=== PATIENT | female | born 1975 | race Caucasian/White ===

== ENCOUNTER 2016-11-22 20:14 | Emergency (ER) | payer BC ==
[2016-11-22 21:04] VITALS: BP 106/75; PULSE 80; RESP 18; TEMP 98
[2016-11-22] MEDS ORDERED: CYCLOBENZAPRINE 10MG STARTER 3 TAB BTL PO STA (21:23)
--- NOTE | 2016-11-22 21:23 | ED ---
Head Injury HPI - General Chief complaint: Head Injury Stated complaint: Fall Time Seen by Provider: 11/22/16 21:07 Source: patient, RN notes reviewed, old records reviewed Mode of arrival: ambulatory Limitations: no limitations - History of Present Illness Initial comments: Patient is a 41 year old female presenting 2 days after a head injury while putting her sukhdev tree in the attic. She states that the tree fell down on her and she fell and strained her right shoulder, landed on her tailbone and has some minor abrasions over her face. She states that she hit the back of her head on the floor, no loss of consciousness, vomiting, or neck pain. She states that she went to an urgent care clinic, and they stated that they would not write her a work note until she was evaluated by an emergency room clinician. She denies any fatigue, confusion, altered mental status. Patient reports she feels fine, and essentially needs a work note for the day. - Related Data Previous Rx's Medication Instructions Recorded Cyclobenzaprine [Flexeril] 10 mg PO TID #20 tab 11/22/16 Allergies/Adverse reactions: Allergies Allergy/AdvReac Type Severity Reaction Status Date / Time aspirin Allergy Unknown Verified 11/22/16 21:04 latex Allergy Unknown Verified 11/22/16 21:04 Review of Systems ROS Statement: Those systems with pertinent positive or pertinent negative responses have been documented in the HPI. ROS Other: All systems not noted in ROS Statement are negative. Past Medical History Past Medical History: Thyroid Disorder History of Any Multi-Drug Resistant Organisms: None Reported Past Surgical History: Bariatric Surgery, Hysterectomy Additional Past Surgical History / Comment(s): Thyroidectomy Past Psychological History: No Psychological Hx Reported Smoking Status: Never smoker Past Alcohol Use History: None Reported Past Drug Use History: None Reported General Exam - General Exam Comments Initial Comments: Well appearing 41 year old female, no acute distress. Limitations: no limitations General appearance: alert, in no apparent distress Head exam: Present: atraumatic, normocephalic, normal inspection Eye exam: Present: normal appearance, PERRL, EOMI. Absent: scleral icterus, conjunctival injection, periorbital swelling ENT exam: Present: normal exam, mucous membranes moist Neck exam: Present: normal inspection. Absent: tenderness, meningismus, lymphadenopathy Respiratory exam: Present: normal lung sounds bilaterally. Absent: respiratory distress, wheezes, rales, rhonchi, stridor Cardiovascular Exam: Present: regular rate, normal rhythm, normal heart sounds. Absent: systolic murmur, diastolic murmur, rubs, gallop, clicks GI/Abdominal exam: Present: soft, normal bowel sounds. Absent: distended, tenderness, guarding, rebound, rigid Extremities exam: Present: normal inspection, full ROM, normal capillary refill. Absent: tenderness, pedal edema, joint swelling, calf tenderness Back exam: Present: normal inspection Neurological exam: Present: alert, oriented X3, CN II-XII intact Expanded Patient oriented to: Present: person, place, time Speech: Present: fluid speech Cranial nerves: EOM's Intact: Normal, Gag Reflex: Normal, Tongue Deviation: Normal, Facial Sensation: Normal Cerebellar function: Finger to Nose: Normal Upper motor neuron: Pronator Drift: Normal Sensory exam: Upper Extremity Light Touch: Normal, Lower Extremity Light Touch: Normal Motor strength exam: RUE: 5, LUE: 5, RLE: 5, LLE: 5 Eye Response: (4) open spontaneously Motor Response: (6) obeys commands Verbal Response: (5) oriented Keri Total: 15 Psychiatric exam: Present: normal affect, normal mood Skin exam: Present: warm, dry, intact, normal color. Absent: rash Course Vital Signs 11/22/16 21:00 Temperature 98 F Pulse Rate 80 Respiratory 18 Rate Blood Pressure 106/75 O2 Sat by Pulse 100 Oximetry Medical Decision Making - Medical Decision Making Patient is a 41 year old female with chief complaint of a head injury 2 days ago. She was seen at urgent care today, and was told she needed to be further evaluated by emergency physician. Patient has no neurological deficits, and is feeling fine. She has no headache. She states that she could not receive a work note from urgent care and was instructed to come to the emergency room if she needed a work note. Patient has no headache, neck pain, and GCS is 15 with no neurological deficits. She reports some pain with flexion and abduction of right shouder, but does have full range of motion. Patient will be prescribed a muscle relaxer medication and given a note for work. Given that the injury is over 48 hours after her fall, extremely unlikely to be any abnormal brain CT such as hemorrhaging. I advised patient on head injury instructions, patient understands treatment plan and will comply. Disposition Clinical Impression: Fall, Minor head injury without loss of consciousness Disposition: HOME SELF-CARE Condition: Good Instructions: Head Injury (ED) Additional Instructions: Patient is to rest, apply warm heat over the extremities and to follow-up with primary care provider if any concerning signs or symptoms occur. Return to emergency department concerned about any further developing symptoms. Prescriptions: Cyclobenzaprine [Flexeril] 10 mg PO TID #20 tab Referrals: Mariana Ramos DO [Primary Care Provider] - 1-2 days Time of Disposition: 21:22
== END 2016-11-22 21:48 | disposition home or self-care (01) ==
LOC: EC 20:14
DX: S09.90XA Unspecified injury of head, initial encounter (principal); Z88.6 Allergy status to analgesic agent; Z91.040 Latex allergy status; W19.XXXA Unspecified fall, initial encounter
CPT/HCPCS: 99283

== ENCOUNTER → 2017-05-17 | Outpatient (CLI) | payer BC ==
[2017-05-17 17:03] LABS: ALT 25 U/L (9-52); AST 18 U/L (14-36); Alkaline Phosphatase 54 U/L (38-126); Anion Gap 10 mmol/L; Blood Urea Nitrogen 18 mg/dL (7-17); Calcium 8.7 mg/dL (8.4-10.2); Carbon Dioxide 26 mmol/L (22-30); Chloride 106 mmol/L (98-107); Glucose 76 mg/dL (74-99); Non-African American GFR(MDRD) >60 (>60 ml/min/1.73 sqM); Potassium 4.1 mmol/L (3.5-5.1); Sodium 142 mmol/L (137-145); Total Bilirubin 0.5 mg/dL (0.2-1.3)
== END | disposition home or self-care (01) ==
LOC: LABWHC1 16:27
PROVIDERS: ATTEND Family Medicine
DX: E55.9 Vitamin D deficiency, unspecified (principal); E83.51 Hypocalcemia
CPT/HCPCS: 36415; 80053; 83970; 84443; 84480

== ENCOUNTER → 2017-05-24 | Outpatient (CLI) | payer BC ==
--- NOTE | 2017-05-25 10:25 | WWHP ---
DATE OF SERVICE: 05/24/17 CHIEF COMPLAINT: The patient is here for her routine gynecological exam and mammogram. HISTORY OF PRESENT ILLNESS: This is a 41-year-old G2, P2, with an LMP of 2007. She states she has noticed a small lump near the clitoris and she first noticed about six months ago. She states it was very small but seems to have gotten bigger and now is slightly greater than pea size. She states it is not painful but can feel irritated especially after shaving this area. The patient is without gynecological complaints. She denies hot flashes. PAST MEDICAL HISTORY: Hypothyroidism. Medications: Levoxyl 125 mcg daily. ALLERGIES: LATEX AND ASPIRIN. PAST SURGICAL HISTORY: Unchanged from 2014 H&P. 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 She has no history of STDs. SOCIAL HISTORY: She denies tobacco, alcohol and drug use. She recently got in 2015 and this is her second marriage. She works for [employer] and travels to [place] frequently. FAMILY HISTORY: Unchanged from 2014 H&P. REVIEW OF SYSTEMS: She has lost about21 pounds over the last year. She is status post lap band surgery in the past. The patient is also experiencing fatigue and feeling very tired all of the time. She also states she often does not feel like getting out of bed and lacks motivation. She denies any suicidal ideation. She denies respiratory, cardiac or gastrointestinal problems. PHYSICAL EXAM: Blood pressure 91/67. Height 4 feet 11 inches. Weight 138 pounds. Temperature 98.4. Pulse 80. This is a well developed, well nourished white female who is alert and oriented times three in no acute distress. HEENT: is within normal limits. Neck is supple without mass or thyromegaly. Chest and lungs clear to auscultation. Heart is regular rate and rhythm. Breasts: Consistent with bilateral implants. There are no palpable masses or tenderness. Axillary exam is negative for adenopathy. Back negative for CVA tenderness. Abdomen there is a palpable lap band port in the upper abdomen which is nontender. There are no other abdominal masses or tenderness noted. Pelvic exam, external genitalia reveals periclitoral cyst approximately 1.5 cm to the clitoris. This cyst measures approximately 9 x 6 mm. This is smooth and mobile. It is nontender and nonerythematous. The rest of the external genitalia is within normal limits. The vagina appears normal. There is no significant atrophy. There is no evidence of prolapse. Bimanual exam is negative for mass or tenderness. Rectal exam negative for mass or tenderness. Negative for occult blood. Extremities nontender. Additional studies: she had some lab work done on 05/17/17 which revealed TSH 6.2 which is elevated and BUN 18 which is slightly elevated. These were tests ordered by her primary care physician office. IMPRESSION: 1. A 41-year-old female who is status post vaginal hysterectomy for benign reasons. 2. Periclitoral epidermal inclusion cyst which has a benign appearance which is bothersome to the patient. 3. Fatigue and lack of motivation which is probably related to her elevated TSH and suggests her hypothyroidism is not well controlled. PLAN: 1. Pap smears have been discontinued. 2. Self breast examination was discussed. 3. Mammogram will be done today. 4. I have recommended that she follow-up with her primary care physician as soon as possible for possible thyroid medication adjustment because of her symptoms and abnormal TSH. 5. She will make an appointment for removal of the periclitoral cyst. We will do this in the office. 6. She will also follow-up with her primary care physician regarding her elevated BUN. 7. If her symptoms of fatigue and lack of motivation are not improved after adjustment of her thyroid medication, we will consider testing including FSH and estradiol. 8. She will return in one year. JEB
--- NOTE | 2017-05-25 11:20 | MM ---
Reason for exam: screening (asymptomatic). Last mammogram was performed 3 years and 7 months ago. History: Family history of breast cancer in grandmother and premenopausal breast cancer in 3 aunts. Implants in both breasts, 2009. Took hormonal contraceptives for 2 years. Physical Findings: A clinical breast exam by your physician is recommended on an annual basis and results should be correlated with mammographic findings. MG Screening Mammo Implant/CAD Bilateral CC, MLO, and ID view(s) were taken. Prior study comparison: October 22, 2013, bilateral digital screening mammo w/CAD. February 25, 2009, bilateral digital screening mammogram. There are scattered fibroglandular densities. No suspicious abnormality. No significant changes when compared with prior studies. ASSESSMENT: Negative, BI-RAD 1 RECOMMENDATION: Routine screening mammogram of both breasts in 1 year.
== END | disposition home or self-care (01) ==
LOC: WWCWWP 10:06
PROVIDERS: ATTEND Obstetrics & Gynecology
DX: Z12.31 Encounter for screening mammogram for malignant neoplasm of breast (principal)

== ENCOUNTER → 2017-06-06 | Day surgery (SDC) | payer BC ==
--- NOTE | 2017-06-06 13:52 | P.PCN ---
Date of Procedure: 06/06/17 Preoperative Diagnosis: Periclitoral epidermal mass Postoperative Diagnosis: Same Procedure(s) Performed: Excision of periclitoral epidermal mass Implants: Anesthesia: local Surgeon: Niko Moreno Estimated Blood Loss (ml): 1 IV fluids (ml): 0 Pathology: other (Epidermal mass) Condition: stable Disposition: same day Indications for Procedure: This was a 41-year-old female who noticed a lump in the clitoral area about six months ago. She states that has gotten larger recently. She states this can be irritating as it is in a very sensitive location Operative Findings: A geovanny-clitoral mass was noted approximately 1.5 cm superior to the clitoris. This is in the midline. This measured approximately 9 x 6 mm. It was smooth and mobile. This was nontender. Description of Procedure: The procedure was discussed with the patient. We discussed possible risks and complications. The area was prepped with Betadine solution. 1% lidocaine was used for local anesthesia and approximately 1.5 mL was used. Following determination of adequate anesthesia, a superficial incision was made over the mass with an 11 blade. The mass was carefully excised intact and sent for pathological examination. A silver nitrate stick was used to obtain hemostasis. Antibiotic ointment was applied and a dressing was also applied. The patient tolerated the procedure well. There were no complications. The patient was instructed to leave the dressing up for 24 hours. She would then keep it clean and dry and use Neosporin's twice daily. She was instructed , she has any problems.
== END ==
LOC: WWCWWP 12:11
PROVIDERS: ATTEND Obstetrics & Gynecology
DX: D28.0 Benign neoplasm of vulva (principal)
CPT/HCPCS: 88305

== ENCOUNTER → 2017-07-10 | Outpatient (CLI) | payer BC ==
[2017-07-10 15:02] VITALS: BP 122/65; PULSE 80; TEMP 97.8; BMI 28.0
--- NOTE | 2017-07-10 16:13 | P.HPBAR ---
Bariatric H&P - History & Physicial H&P Date: 07/10/17 History & Physicial: Visit/CC: lap band follow up Patient initial contact: Initial weight: Initial weight in pounds: Height: 4 ft 11 in Initial BMI: Last weight: Current weight: 62.868 kg Current weight in pounds: 138.60 Current BMI: 28.0 [place] body weight (based on NIH guidelines): 43.091 kg Excess body weight loss: The patient is a 41 year-old F who presents for Bariatric Assessment. The patient presents today for lap band follow up. She is requesting some fluid to be remove her band. She's had some minor dysphagia. Past Medical History Past Medical History: Thyroid Disorder History of Any Multi-Drug Resistant Organisms: None Reported Past Surgical History: Bariatric Surgery, Hysterectomy Additional Past Surgical History / Comment(s): Thyroidectomy Past Psychological History: No Psychological Hx Reported Smoking Status: Never smoker Past Alcohol Use History: None Reported Past Drug Use History: None Reported Surgical - Exam Vital Signs Temp Pulse BP 97.8 F 80 122/65 07/10/17 14:55 07/10/17 14:55 07/10/17 14:55 - General well developed, no distress - Eyes PERRL - Abdomen Abdomen: soft, non tender Bariatric Assessment & Plan Plan: Patient's lap band was adjusted. She had 0.5 mL remove her band. She will follow-up in one month. Bariatric Checklist Checklist: Plan: Checklist: EGD: 1. Hiatal hernia: 2. H. Pylori: HgbA1c: Vitamin D: Smoking: Never smoker Primary care physician referral: Psychiatry clearance: Cardiology clearance: Sleep study: Diet journal: VTE risk score: VTE risk level: Rehab needs at discharge:
== END | disposition home or self-care (01) ==
LOC: BARWHC3 14:21
PROVIDERS: ATTEND Surgery
DX: Z48.815 Encounter for surgical aftercare following surgery on the digestive system (principal); Z98.84 Bariatric surgery status
CPT/HCPCS: 99212

== ENCOUNTER → 2017-10-16 | Outpatient (CLI) | payer BC ==
--- NOTE | 2017-10-16 16:08 | P.HPBAR ---
Bariatric H&P - History & Physicial H&P Date: 10/16/17 History & Physicial: Visit/CC: Patient initial contact: Initial weight: Initial weight in pounds: Height: Initial BMI: Last weight: Current weight: Current weight in pounds: Current BMI: [place] body weight (based on NIH guidelines): Excess body weight loss: The patient is a 42 year-old F who presents for Bariatric Assessment. Patient presents today for LAP-BAND follow-up. She has complaints of hunger. She's gained approximately 23 pounds since her last visit. Past Medical History Past Medical History: Thyroid Disorder History of Any Multi-Drug Resistant Organisms: None Reported Past Surgical History: Bariatric Surgery, Hysterectomy Additional Past Surgical History / Comment(s): Thyroidectomy Past Psychological History: No Psychological Hx Reported Smoking Status: Never smoker Past Alcohol Use History: None Reported Past Drug Use History: None Reported Surgical - Exam - General well developed, no distress - Eyes PERRL - Cardiovascular Rhythm: regular - Abdomen Abdomen: soft, non tender Bariatric Assessment & Plan Plan: A shunt LAP-BAND was adjusted. 0.3 mL was added to her band. She currently 7.1 mL in the band. She was able to drink water without difficulty. Bariatric Checklist Checklist: Plan: Checklist: EGD: 1. Hiatal hernia: 2. H. Pylori: HgbA1c: Vitamin D: Smoking: Never smoker Primary care physician referral: Psychiatry clearance: Cardiology clearance: Sleep study: Diet journal: VTE risk score: VTE risk level: Rehab needs at discharge:
[2017-10-16 16:22] VITALS: RESP 15; BMI 32.5
== END ==
LOC: BARWHC3 13:18
PROVIDERS: ATTEND Surgery
DX: Z48.815 Encounter for surgical aftercare following surgery on the digestive system (principal); Z98.84 Bariatric surgery status; Z90.710 Acquired absence of both cervix and uterus
CPT/HCPCS: 99212

== ENCOUNTER → 2021-05-26 | Outpatient (CLI) | payer BC ==
[2021-05-26 10:50] VITALS: BP 91/60; PULSE 78; RESP 16; TEMP 98.4
--- NOTE | 2021-05-26 12:13 | P.HPOB ---
History of Present Illness H&P Date: 05/26/21 Chief Complaint: The patient is here for her routine gynecologic exam and ma mmogram. This is a 45-year-old with an LMP of 2007. The patient is status post vaginal hysterectomy in 2007 for history of cervical dysplasia. The patient is without gynecologic complaints and denies any significant hot flashes. Review of Systems She has gained about 20 pounds over the past 4 years. This was after losing significant weight following a lap band surgery. She denies respiratory, cardiac, or GI problems. Past Medical History Past Medical History: Cancer, Thyroid Disorder Additional Past Medical History / Comment(s): LAP BAND WITH FLUID (DR DIAZ), THYROID CANCER WITH SURGERY., ANEMIA., FX LEFT ANKLE 11/17/20-STATES SHE HAS AIR CAST. Hypothyroidism. 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 She had a vaginal hysterectomy for high-grade dysplasia and abnormal bleeding. History of Any Multi-Drug Resistant Organisms: MRSA Date of last positivie culture/infection: 2011 MDRO Source:: ORAL Past Surgical History: Bariatric Surgery, Breast Surgery, Hysterectomy Additional Past Surgical History / Comment(s): Thyroidectomy, LAP BAND-FOLLOWS WITH DR DIAZ. Panniculectomy. Bilateral silicone breast implants. Conization of the cervix 2005. Vaginal hysterectomy in 2007. Left ankle surgery 2020. Past Anesthesia/Blood Transfusion Reactions: No Reported Reaction, Family History of Problems w/ Anesthesia Additional Past Anesthesia/Blood Transfusion Reaction / Comment(s): DAUGHTER HAS PONV Past Psychological History: No Psychological Hx Reported Smoking Status: Never smoker Past Alcohol Use History: None Reported Past Drug Use History: None Reported Additional History: She has been since 2015 and this is her second marriage. She works for [employer] and travels frequently. - Past Family History Mother Family Medical History: No Reported History Father Family Medical History: Cancer Additional Family Medical History / Comment(s): KIDNEY CANCER maternal aunts Family Medical History: Cancer Additional Family Medical History / Comment(s): 3 maternal aunts with breast cancer. Paternal Grandfather Family Medical History: Cancer Additional Family Medical History / Comment(s): Colon and pancreatic cancer. paternal aunt Family Medical History: Cancer Additional Family Medical History / Comment(s): Colon cancer. Medications and Allergies Home Medications Medication Instructions Recorded Confirmed Type Levothyroxine 115 mcg PO DAILY 12/16/20 05/26/21 History Allergies Allergy/AdvReac Type Severity Reaction Status Date / Time aspirin Allergy nose Verified 05/26/21 10:43 bleeds,bruising latex Allergy swelling,hi Verified 05/26/21 10:43 ves Exam Vital Signs Temp Pulse Resp BP Pulse Ox 05/26/21 10:45 98.4 F 78 16 91/60 98 Intake and Output 05/25/21 05/26/21 05/26/21 22:59 06:59 14:59 Other: Weight 71.668 kg Height 5 feet 0 inches, weight 158 pounds, BMI 30.9. This is a well-developed well-nourished white female who is alert and oriented times 3 in no acute distress. HEENT: Within normal limits. NECK: Supple without mass or thyromegaly. CHEST AND LUNGS: Clear to auscultation. HEART: Regular rate and rhythm. BREASTS: Are without mass or discharge. AXILLARY EXAM: Negative for adenopathy. BACK: Negative for CVA tenderness. ABDOMEN: Soft, nontender, with a palpable lap band port in the upper abdomen. There are no other benigno. palpable. PELVIC EXAM: External genitalia appears normal. Vagina appears normal. There is no evidence of prolapse. Bimanual examination is negative for mass or tenderness. RECTAL EXAM: Rectalexam is negative for mass or tenderness and is negative for occult blood. EXTREMITIES: Nontender. IMPRESSION: 1. 45-year-old female who is status post vaginal hysterectomy with normal gynecologic exam. 2. Probable perimenopausal female based on lack of vasomotor symptoms and her age. 3. Strong family history of cancer including breast cancer in 3 maternal aunts, colon cancer in a paternal aunt and paternal grandfather, and ovarian cancer in a grandmother. Father also has renal cancer and her paternal grandfather had pancreatic cancer. PLAN: 1. Pap smears have been discontinued. 2. Self breast awareness was discussed with the patient. We have also discussed symptoms associated with inflammatory breast cancer. 3. mammogram will be done today. 4. We have had a long discussion regarding cancer genetic counseling. Because of her family history she is interested in undergoing this counseling and possible cancer genetic testing. She will be referred to the [facility] cancer genetics Department. 5. I have recommended screening colonoscopy based on her age and family history of colon cancer. She states she has been discussing this with her PCP and will be arranging for this in the near future. 6.Osteoporosis prevention was discussed. I have stressed the importance of adequate calcium, vitamin D and regular exercise. Recommended amounts of calcium and vitamin D were also discussed. 7. She was advised to return in one year for her annual well woman exam.
--- NOTE | 2021-05-26 14:23 | MM ---
Reason for exam: additional evaluation requested from prior study. Last mammogram was performed 4 years ago. History: Family history of breast cancer in grandmother and premenopausal breast cancer in 3 aunts. Pre-pectoral silicone gel implants in both breasts, 2009. Took hormonal contraceptives for 2 years. Physical Findings: Nurse did not find any significant physical abnormalities on exam. MG 3D Diag Mammo Imp W/Cad GARRETT Bilateral CC, MLO, and ID view(s) were taken. XCCL view(s) were taken of the right breast. Prior study comparison: May 24, 2017, bilateral MG screening mammo implant/CAD. October 22, 2013, bilateral digital screening mammo w/CAD. The breast tissue is heterogeneously dense. This may lower the sensitivity of mammography. No suspicious calcifications are seen. Breast implants are intact. No significant new findings when compared with previous films. These results were verbally communicated with the patient and result sheet given to the patient on 05/26/21. ASSESSMENT: Benign, BI-RAD 2 RECOMMENDATION: Routine screening mammogram of both breasts in 1 year.
== END ==
LOC: WWCWWP 10:36
PROVIDERS: ATTEND Obstetrics & Gynecology
DX: Z01.419 Encounter for gynecological examination (general) (routine) without abnormal findings (principal); E03.9 Hypothyroidism, unspecified; Z79.890 Hormone replacement therapy; Z90.710 Acquired absence of both cervix and uterus; Z80.3 Family history of malignant neoplasm of breast; Z80.0 Family history of malignant neoplasm of digestive organs; Z80.41 Family history of malignant neoplasm of ovary; Z80.51 Family history of malignant neoplasm of kidney; Z88.6 Allergy status to analgesic agent; Z91.040 Latex allergy status
CPT/HCPCS: 77062; 77066

== ENCOUNTER → 2021-11-09 | Outpatient (CLI) | payer BC ==
[2021-11-09 18:18] LABS: HCT 39.1 % (37.2-46.3); HGB 12.3 g/dL (12.0-15.0); MCH 29.5 pg (27.0-32.0); MCHC 31.5 g/dL (32.0-37.0); MCV 93.8 fL (80.0-97.0); Mean Platelet Volume 10.9 fL (9.5-12.2); NRBC Per 100 WBC 0 /100 WBCS (0.0-0.0); Platelet Count 221 X 10*3/uL (140-440); RBC 4.17 X 10*6/uL (4.10-5.20); RDW 13.1 % (11.5-14.5); WBC 5.88 X 10*3/uL (4.50-10.00)
[2021-11-09 18:41] LABS: BUN/Creat Ratio 22.78 Ratio (12.00-20.00); Globulin 2.7 g/dL (1.6-3.3); HDL Cholesterol 79.4 mg/dL (40.00-60.00); Triglycerides 44.5 mg/dL (0.00-149.00)
[2021-11-09 18:42] LABS: African American GFR (CKD) 120.9 (60.0-200.0); Albumin/Globulin Ratio 1.52 (1.60-3.17); Blood Urea Nitrogen 15.1 mg/dL (9.0-27.0); Calcium 8.4 mg/dL (8.7-10.3); Carbon Dioxide 22.8 mmol/L (20.0-27.5); Non-African American GFR(CKD) 104.3 (60.0-200.0); Potassium 4.1 mmol/L (3.5-5.5); Total Bilirubin 0.4 mg/dL (0.30-1.20); Total Protein 6.7 g/dL (6.2-8.2)
[2021-11-09 19:12] LABS: Chol/HDL Ratio 2.33 Ratio
== END | disposition home or self-care (01) ==
LOC: LABWHC1 10:17
PROVIDERS: ATTEND Physician Assistant Medical
DX: E03.9 Hypothyroidism, unspecified (principal)
CPT/HCPCS: 36415; 80053; 80061; 83721; 84436; 84443; 84481; 85027